=== PATIENT | male | born 1980 | race Two or more races ===

== ENCOUNTER 2019-03-28 21:20 | Inpatient (IN) | payer OTHER ==
[~2019-03-28] VITALS: Ht 177.8 cm; Wt 126.0 kg
--- NOTE | 2019-03-28 21:28 | NUR ---
THIS 39YOM BIB [facility] FROM [facility] FOR [facility]/O LEFT FACIAL SWELLING STARTED THIS AM. PT REPORTS PULLED "AN INGROWN HAIR" FROM LEFT CHEEK LAST NOC, WOKE W/ SWELLING AND PAIN THIS AM. PT REPORTS SWELLING HAS BEEN GETTING PROGRESSIVELY WORSE THROUGHOUT THE DAY AND IS NOW HAVING DIFFICULTY SEEING OUT OF LEFT EYE. PT DENIES DIFFICULTY BREATHING OR SWALLOWING AT THIS TIME.
[2019-03-28] MEDS ORDERED: CLINDAMYCIN PMX 600MG/50ML 50 ML IVPB ONE (21:30)
[2019-03-28] MEDS ORDERED: MORPHINE SULFATE 4 MG/ML, 1ML IVPush PRN (21:30)
[2019-03-28 22:17] LABS: BASOPHILS # (AUTO) 0.03 x10^3/uL (0-0.1); BASOPHILS % (AUTO) 0 % (0-1); EOSINOPHILS # (AUTO) 0.08 x10^3/uL (0-0.4); EOSINOPHILS % (AUTO) 1 % (1-7); LYMPHOCYTES # (AUTO) 1.49 x10^3/uL (1-3.4); LYMPHOCYTES % (AUTO) 14 % (22-44); MD NO; MEAN CORPUSCULAR HEMOGLOBIN 30.1 pg (27.5-34.5); MEAN CORPUSCULAR HGB CONC 33.1 g/dL (33.2-36.2); MEAN PLATELET VOLUME 6.8 fL (7.4-10.4); MONOCYTES % (AUTO) 7 % (2-9); NEUTROPHILS # (AUTO) 8.48 x10^3/uL (1.8-6.8); NEUTROPHILS % (AUTO) 78 % (42-75); PLATELET COUNT 221 x10^3/uL (130-400); RED BLOOD COUNT 4.98 x10^6/uL (4.38-5.82); RED CELL DISTRIBUTION WIDTH 14.3 % (9.4-14.8)
[2019-03-28 22:26] LABS: ALBUMIN 3.4 g/dL (3.4-5.0); ANION GAP 8 mmol/L (5-15); CALCIUM 8.8 mg/dL (8.5-10.1); CHLORIDE 107 mmol/L (98-107); CREATININE 1.21 mg/dL (0.7-1.3)
[2019-03-28] MEDS ORDERED: CLINDAMYCIN PMX 600MG/50ML 50 ML ONE (22:42)
[2019-03-28] MEDS ORDERED: MORPHINE SULFATE 4 MG/ML, 1ML ONE (22:42)
--- NOTE | 2019-03-28 22:49 | NUR ---
PT MEDICATED ORDERED. PT TAKEN TO CT
[2019-03-28] MEDS ORDERED: SERT100T32 PO (23:45)
[2019-03-28] MEDS ORDERED: TRAZ-96 PO (23:46)
[2019-03-28] MEDS ORDERED: DULO60CA56 PO (23:48)
[2019-03-28] MEDS ORDERED: GABA300C10 PO (23:49)
[2019-03-28] MEDS ORDERED: HYDR50TA13 PO (23:50)
[2019-03-28] MEDS ORDERED: LISI2.5T PO (23:51)
[2019-03-28] MEDS ORDERED: LORA10TA75 PO (23:52)
[2019-03-28] MEDS ORDERED: MONT10TA9 PO (23:53)
[2019-03-28] MEDS ORDERED: QUET300T PO (23:54)
[2019-03-28] MEDS ORDERED: QUET50TA PO (23:55)
[2019-03-28] MEDS ORDERED: ACET500T76 PO (23:57)
[2019-03-28] MEDS ORDERED: CABE0.5T PO (23:58)
[2019-03-29] MEDS ORDERED: ONDANSETRON 2MG/ML, 2ML IVPush PRN
[2019-03-29] MEDS ORDERED: hydrALAzine 20 MG/ML, 1ML IVPush PRN
[2019-03-29] MEDS ORDERED: IBUPROFEN 600 MG TABLET PO PRN
[2019-03-29] MEDS ORDERED: ACETAMINOPHEN 325 MG TABLET PO PRN
[2019-03-29] MEDS ORDERED: [UNRECOGNIZED DRUG - CODE] PO (00:06)
--- NOTE | 2019-03-29 00:07 | NUR ---
ADMITTING MD AT BEDSIDE TO DISCUSS POC INCLUDING ADMISSION. MED REC COMPLETED BASED OFF LIST FROM PT PHONE.
[2019-03-29 00:29] VITALS: BP 98/67
[2019-03-29 00:30] VITALS: BP 98/67
[2019-03-29 04:53] LABS: BASOPHILS # (AUTO) 0.04 x10^3/uL (0-0.1); BASOPHILS % (AUTO) 0 % (0-1); EOSINOPHILS # (AUTO) 0.18 x10^3/uL (0-0.4); EOSINOPHILS % (AUTO) 2 % (1-7); LYMPHOCYTES # (AUTO) 1.91 x10^3/uL (1-3.4); LYMPHOCYTES % (AUTO) 19 % (22-44); MD NO; MEAN CORPUSCULAR HEMOGLOBIN 30.3 pg (27.5-34.5); MEAN CORPUSCULAR HGB CONC 33.3 g/dL (33.2-36.2); MEAN CORPUSCULAR VOLUME 90.8 fL (81-97); MEAN PLATELET VOLUME 6.8 fL (7.4-10.4); MONOCYTES # (AUTO) 0.98 x10^3/uL (0.2-0.8); MONOCYTES % (AUTO) 10 % (2-9); NEUTROPHILS # (AUTO) 6.99 x10^3/uL (1.8-6.8); NEUTROPHILS % (AUTO) 69 % (42-75); PLATELET COUNT 202 x10^3/uL (130-400); RED BLOOD COUNT 4.84 x10^6/uL (4.38-5.82); RED CELL DISTRIBUTION WIDTH 14.7 % (9.4-14.8)
[2019-03-29] MEDS: CLINDAMYCIN PMX 600MG/50ML 50 ML IV SCH ×3 (06:37→23:10)
[2019-03-29] MEDS: ENOXAPARIN 40 MG/0.4 ML SQ SCH (06:37)
[2019-03-29] MEDS: SENNA/DOCUSATE TABLET PO SCH (08:24)
[2019-03-29 08:44] VITALS: BP 126/78
[2019-03-29 14:35] VITALS: BP 132/88
[2019-03-29 19:56] VITALS: BP 138/89
[2019-03-29] MEDS: LORATADINE 10 MG TABLET PO SCH (23:11)
[2019-03-29] MEDS: DULOXETINE 30 MG CAPSULE.DR PO SCH (23:11)
[2019-03-29] MEDS: LISINOPRIL 5 MG TABLET PO SCH (23:13)
[2019-03-30 01:32] VITALS: BP 127/79
[2019-03-30 04:48] LABS: BASOPHILS # (AUTO) 0.03 x10^3/uL (0-0.1); BASOPHILS % (AUTO) 0 % (0-1); EOSINOPHILS # (AUTO) 0.13 x10^3/uL (0-0.4); EOSINOPHILS % (AUTO) 2 % (1-7); LYMPHOCYTES # (AUTO) 1.58 x10^3/uL (1-3.4); LYMPHOCYTES % (AUTO) 18 % (22-44); MD NO; MEAN CORPUSCULAR HEMOGLOBIN 30.4 pg (27.5-34.5); MEAN CORPUSCULAR HGB CONC 33.5 g/dL (33.2-36.2); MEAN CORPUSCULAR VOLUME 90.8 fL (81-97); MEAN PLATELET VOLUME 6.7 fL (7.4-10.4); MONOCYTES # (AUTO) 0.74 x10^3/uL (0.2-0.8); MONOCYTES % (AUTO) 8 % (2-9); NEUTROPHILS # (AUTO) 6.49 x10^3/uL (1.8-6.8); NEUTROPHILS % (AUTO) 72 % (42-75); PLATELET COUNT 235 x10^3/uL (130-400); RED BLOOD COUNT 5.06 x10^6/uL (4.38-5.82); RED CELL DISTRIBUTION WIDTH 14.5 % (9.4-14.8)
[2019-03-30 05:01] LABS: ANION GAP 7 mmol/L (5-15); CALCIUM 8.5 mg/dL (8.5-10.1); CHLORIDE 106 mmol/L (98-107)
[2019-03-30 05:04] LABS: CREATININE 0.97 mg/dL (0.7-1.3)
[2019-03-30] MEDS: ENOXAPARIN 40 MG/0.4 ML SQ SCH (06:45)
[2019-03-30] MEDS: CLINDAMYCIN PMX 600MG/50ML 50 ML IV SCH ×3 (06:46→22:50)
[2019-03-30 07:22] VITALS: BP 122/84
[2019-03-30] MEDS: LISINOPRIL 5 MG TABLET PO SCH (09:00)
[2019-03-30] MEDS: SENNA/DOCUSATE TABLET PO SCH (09:18)
[2019-03-30 15:30] VITALS: BP 143/83
[2019-03-30] MEDS ORDERED: CELE200C PO (15:33)
[2019-03-30 19:47] VITALS: BP 120/79
[2019-03-30] MEDS ORDERED: LISINOPRIL 5 MG TABLET PO SCH (21:00)
[2019-03-30] MEDS: DULOXETINE 30 MG CAPSULE.DR PO SCH (21:00)
[2019-03-30] MEDS ORDERED: SERTRALINE 100MG TABLET PO SCH (22:00)
[2019-03-30] MEDS ORDERED: DULOXETINE 30 MG CAPSULE.DR PO SCH (22:00)
[2019-03-30] MEDS ORDERED: QUETIAPINE 25MG TABLET PO SCH (22:00)
[2019-03-30] MEDS: TRAZODONE 50MG TABLET PO SCH (22:00)
[2019-03-30] MEDS ORDERED: GABAPENTIN 300 MG CAPSULE ONE (22:08)
[2019-03-30] MEDS ORDERED: SERTRALINE 100MG TABLET ONE (22:09)
[2019-03-30] MEDS ORDERED: TRAZODONE 50MG TABLET ONE (22:10)
[2019-03-30] MEDS ORDERED: hydrOXyzine 50MG TABLET ONE (22:13)
[2019-03-30] MEDS ORDERED: QUETIAPINE 100MG TABLET ONE (22:14)
[2019-03-30] MEDS: hydrOXyzine 50MG TABLET PO PRN (22:16)
[2019-03-30] MEDS: GABAPENTIN 300 MG CAPSULE PO SCH (22:16)
[2019-03-30] MEDS: LORATADINE 10 MG TABLET PO SCH (22:50)
[2019-03-31 04:26] VITALS: BP 114/70
[2019-03-31] MEDS ORDERED: QUETIAPINE 200 MG TABLET PO SCH (06:00)
[2019-03-31 06:05] LABS: BASOPHILS # (AUTO) 0.03 x10^3/uL (0-0.1); BASOPHILS % (AUTO) 0 % (0-1); EOSINOPHILS # (AUTO) 0.19 x10^3/uL (0-0.4); EOSINOPHILS % (AUTO) 3 % (1-7); LYMPHOCYTES # (AUTO) 1.75 x10^3/uL (1-3.4); LYMPHOCYTES % (AUTO) 24 % (22-44); MD NO; MEAN CORPUSCULAR HEMOGLOBIN 30.5 pg (27.5-34.5); MEAN CORPUSCULAR HGB CONC 33.3 g/dL (33.2-36.2); MEAN CORPUSCULAR VOLUME 91.7 fL (81-97); MEAN PLATELET VOLUME 6.8 fL (7.4-10.4); MONOCYTES # (AUTO) 0.77 x10^3/uL (0.2-0.8); MONOCYTES % (AUTO) 11 % (2-9); NEUTROPHILS # (AUTO) 4.46 x10^3/uL (1.8-6.8); NEUTROPHILS % (AUTO) 62 % (42-75); PLATELET COUNT 234 x10^3/uL (130-400); RED BLOOD COUNT 5.17 x10^6/uL (4.38-5.82); RED CELL DISTRIBUTION WIDTH 14.4 % (9.4-14.8)
[2019-03-31 06:17] LABS: CHLORIDE 107 mmol/L (98-107)
[2019-03-31 06:21] LABS: ANION GAP 7 mmol/L (5-15); CALCIUM 9.1 mg/dL (8.5-10.1); CREATININE 1.13 mg/dL (0.7-1.3)
[2019-03-31] MEDS: ENOXAPARIN 40 MG/0.4 ML SQ SCH (06:30)
[2019-03-31] MEDS: CLINDAMYCIN PMX 600MG/50ML 50 ML IV SCH (06:46)
[2019-03-31 06:50] VITALS: BP 115/73
[2019-03-31] MEDS ORDERED: LACT1CAP35 PO (08:56)
[2019-03-31] MEDS ORDERED: CLIN300C8 PO (08:56)
[2019-03-31] MEDS: GABAPENTIN 300 MG CAPSULE PO SCH (09:20)
[2019-03-31] MEDS: LORATADINE 10 MG TABLET PO SCH (09:21)
[2019-03-31] MEDS: TRAZODONE 50MG TABLET PO SCH (09:21)
[2019-03-31] MEDS: hydrOXyzine 50MG TABLET PO PRN (09:23)
[2019-03-31] MEDS: SENNA/DOCUSATE TABLET PO SCH (09:24)
== END 2019-03-31 09:45 | disposition home or self-care (01) | DRG 603 ==
LOC: ED 03-29 00:03 → 4NE 03-29 00:25 → DCLOUNGE 03-31 09:35
PROVIDERS: ADMIT Family Medicine; ATTEND Family Medicine
DX: L03.211 Cellulitis of face (principal); E66.9 Obesity, unspecified; Z68.39 Body mass index [BMI] 39.0-39.9, adult; F32.9 Major depressive disorder, single episode, unspecified; I10 Essential (primary) hypertension; J30.2 Other seasonal allergic rhinitis; L73.1 Pseudofolliculitis barbae
CPT/HCPCS: 36415; 70487; 80048; 82040; 85025; 87040; 96372; G0378; J1650; J2270